=== PATIENT | female | born 1945 | race Caucasian/White ===

== ENCOUNTER → 2016-05-02 | Outpatient (CLI) | payer OTHER, MEDICAID ==
[~2016-05-02] MED LIST: ASA PO; CALCIUM 500500 M1 PO; FENOFIBRATE134 MG PO; FENOFIBRATE145 M1 PO; FISH OIL; GABAPENTIN300 MG PO; GLYXAMBI1 TA1 PO; HUMALOG100 U/ML SC; HUMULIN 70/30 703 M1 SC; HYDROCODONE BIT1 T11 PO; LANTUS SOLOS100 U/M1 SC; LANTUS100 U/ML SC; LOSARTAN POTAS100 M1 PO; MULTIVITAMIN; NORCO 325 MG-51 TAB PO; NOVOLOG 70/30 M10 ML SC; NOVOLOG MI100 UNIT/1 SC; NOVOLOG SC; OMEPRAZOLE; PAROXETINE HCL20 MG PO; PAROXETINE PO; SIMVASTATIN10 MG PO; TRAD5TAB1 PO; VITAMIN D50000 I3 PO; [UNRECOGNIZED DRUG - CODE] PO; [UNRECOGNIZED DRUG - OTHER] PO
[2016-05-02 13:07] LABS: HEMOGLOBIN A1c 9.5 % (4.8-5.6)
[2016-05-02 13:11] LABS: ALBUMIN 3.5 gm/dl (3.1-4.5); BILIRUBIN, TOTAL 0.3 mg/dl (0.2-1.0); POTASSIUM 4.3 mmol/L (3.5-5.1); TOTAL PROTEIN 7.4 gm/dL (6.4-8.2)
== END | disposition home or self-care (01) ==
LOC: LAB 12:07
PROVIDERS: Family Medicine
DX: E11.9 Type 2 diabetes mellitus without complications (principal); I10 Essential (primary) hypertension; E78.00 Pure hypercholesterolemia, unspecified; E55.9 Vitamin D deficiency, unspecified

== ENCOUNTER → 2016-07-23 | Outpatient (CLI) | payer OTHER, MEDICAID | END | disposition home or self-care (01) | LOC: RAD 08:29 | DX: R06.02 Shortness of breath (principal); I10 Essential (primary) hypertension; E11.9 Type 2 diabetes mellitus without complications; R07.89 Other chest pain ==

== ENCOUNTER → 2016-08-01 | Outpatient (CLI) | payer OTHER | END | disposition home or self-care (01) | LOC: CARD 11:04 | DX: R07.9 Chest pain, unspecified (principal) ==

== ENCOUNTER 2016-08-10 11:12 | Inpatient (IN) | payer OTHER, MEDICAID ==
[~2016-08-10] VITALS: Ht 157.5 cm; Wt 84.6 kg
[2016-08-10] VITALS (10 sets, daily range): BP systolic 137–165; BP diastolic 50–78
--- NOTE | ~2016-08-10 | O ---
[place], [place] OPERATIVE NOTE NAME: MARIA ELENA SCHAFER UNIT #: [id number] ROOM: [facility] DOCTOR: SENAIT JUNG,ARABELLA BIRTHDATE: [birth year] DOS: 08/10/2016 ENDOSCOPIC REPORT HISTORY OF PRESENT ILLNESS: The patient has presented with chief complaint of epigastric distress and atypical chest pain and troponin positivity, anemia, drop in H and H to 9 and 28, platelets normal at 360 plus, INR has been 1.0. BUN and creatinine rather has been ____ and 1.6. GFR is greater than 38. Troponin 0.071, lipase 139, normal. Chest x-ray: Interval decrease in lung volume. Troponin again reassessed. PAST MEDICAL HISTORY: Associated diabetes, diverticulosis, hyperglycemia, renal insufficiency. ALLERGIES: No known medication. MEDICATIONS: List has been reviewed. She has been taking aspirin 81 mg daily and about 12 tablets of ibuprofen, nonsteroidal antiinflammatory per day. PROCEDURE: Today's procedure part of investigation is panendoscopy. PREMEDICATION: Versed and Diprivan. SCOPE: Olympus forward-viewing gastroscope Q10 video. REPORT: After putting the patient in the left lateral position and after application of lubricant to the scope, the scope was introduced; thereafter, under direct visualization, advanced through the length of esophagus without difficulty. Esophagus, cervicothoracic was carefully examined. Gastric pouch was entered. Gastritis was seen. Multierosions throughout the antrum was identified. These are all secondary to nonsteroidal anti-inflammatory. Biopsy obtained. Duodenal bulb, second and third parts were free of ulcerations. The patient extubated, tolerated the procedure well. IMPRESSION: Multigastric erosions secondary to nonsteroidal anti-inflammatory gastritis. PLAN AND DISCUSSION: We are going to treat this patient with Protonix 40 mg IV b.i.d., sucralfate 2 grams slurry q.i.d. with every 2 hours before meals and at bedtime soft diet. We are going to obtain platelet function test due to the avid usage of antiplatelets on her including aspirin and nonsteroidal anti-inflammatory and cardiac catheterization is being scheduled by Dr. Stout, workup in progress. [place], [place] OPERATIVE NOTE NAME: MARIA ELENA SCHAFER UNIT #: [id number] ROOM: [facility] DOCTOR: SENAIT JUNG,ARABELLA BIRTHDATE: [birth year] ARABELLA SAPP MD CM:OPRECORD:OPERATIVE NOTE [id number] ARABELLA SAPP MD 08/11/16 0535 interface
--- NOTE | ~2016-08-10 | WRIGHTHP ---
[place], [place] PATIENT HISTORY AND PHYSICAL EXAM NAME: [facility]IA ELENA SCHAFER [id number] UNIT #: [id number] ROOM: [facility] DOCTOR: ARVIND CAT MD BIRTHDATE: [birth year] DOS: 08/10/2016 HISTORY OF PRESENT ILLNESS: The patient is 71 years old. The patient comes in with complaints of chest pain. The patient states that for the last one month she has been having pain across the chest, especially when she does something exertional at home, sometimes it goes between her shoulder blades towards the back. She also has some mild shortness of breath. She went to see her PCP, Dr. Green a few days ago. She was referred to Dr. Stout. Dr. Stout had ordered a stress test when she was waiting for insurance approval for the test, but the patient continued to have chest pain yesterday and so decided to come into the Emergency Room. She was also mildly short of breath. She does not have any palpitations, does not have any fever or chills, does not have any abdominal pain, nausea, any emesis. PAST MEDICAL HISTORY: Significant for, 1. Type 2 diabetes mellitus, insulin dependent. 2. Benign hypertension. 3. Mixed hyperlipidemia. 4. Chronic kidney disease stage 4. 5. Fracture of the right shoulder, status post repair. 6. Chronic back pain as well as shoulder pain from osteoarthritis for which she takes about 12 Motrin daily. MEDICATIONS: Her medications that she currently takes are aspirin 81, again 10-12 Motrin daily for back and other pains, vitamin D 50,000 units weekly, fenofibrate 145 daily, gabapentin 300 b.i.d., losartan 100 daily, Paxil 20 daily, NovoLog 70/30 60 units twice daily, Tresiba 80 units q.h.s., omeprazole 40 daily. SOCIAL HISTORY: Nonsmoker, does not use any alcohol. She lives at home. She had one child who was 34 who at the age of 34. She had 3 brothers who had lung disease. PHYSICAL EXAMINATION: GENERAL: She is awake and alert and oriented with slight respiratory distress at rest. VITAL SIGNS: Pressure is 160/89, pulse of 80, respirations 17, temperature 97.9. LUNGS: Diminished breath sounds. No wheezes heard today. HEART: Regular. ABDOMEN: Obese. EXTREMITIES: Without any edema. No rebound tenderness over the chest wall. LABORATORY DATA: EKG showed sinus, left axis deviation, nonspecific ST-T wave changes, poor R-wave progression with possibility of LVH. The rest of the labs, white cell count was 5.1, hemoglobin 8.9, hematocrit 28.8, platelets 365. Protime is 10.6. Comprehensive glucose 163, BUN 37, creatinine 1.64. Electrolytes were normal. Initial troponin on admission was 0.071. Chest x-ray was unremarkable. [place], [place] PATIENT HISTORY AND PHYSICAL EXAM NAME: MARIA ELENA SCHAFER UNIT #: [id number] ROOM: [facility] DOCTOR: ARVIND CAT MD BIRTHDATE: [birth year] ASSESSMENT AND PLAN: 1. The patient who presents with unstable angina with elevation of troponin, which continues to go up. Since admission it has not stabilized, it continues to show a slight upward take. The patient will need to have a cardiac catheterization so waiting for a stress test on Saturday. Just spoke with Dr. Gupta. The patient to go to [facility] this morning for a cath. 2. Type 2 diabetes mellitus. Blood sugar was on the low side yesterday because she was not eating anything for an endoscopy. Insulin was held and she was given IV fluids with D5 and her blood sugar was 104 this morning. 3. Chronic renal insufficiency, stage 4 from a combination of diabetic nephropathy as well as multiple Motrin that she takes, advised against it. 4. Anemia. Iron, ferritin, B12, folic acid levels are pending. This could be anemia of chronic disease from again chronic renal insufficiency. We are awaiting labs again this morning. The patient was on IV fluids for the last few hours. We will start on supplements again depending on the iron studies. ARVIND CAT MD CM:HISPHYS:PATIENT HISTORY AND PHYSICAL EXAMINATION 1 6 ARVIND CAT MD 08/11/16 0808 interface
[2016-08-10 11:25] LABS: BASO % 0.2 % (0.0-1.0); EOS # 0.1 10*3/uL (0.0-0.4); EOS % 1.8 % (1.0-4.0); HEMATOCRIT 28.8 % (37.0-47.0); HEMOGLOBIN 8.9 g/dl (12.0-16.0); LYMPH # 0.8 10*3/uL (1.3-4.4); LYMPH % 14.7 % (27.0-41.0); MEAN CELL VOLUME 94.4 fl (81.0-99.0); MEAN CORPUSCULAR HGB 29.2 pg (27.0-31.0); MEAN CORPUSCULAR HGB CONC 30.9 g/dl (33.0-37.0); MEAN PLATELET VOLUME 9.2 fl (9.6-12.3); MONO # 0.3 10*3/uL (0.1-1.0); MONO % 5.9 % (3.0-9.0); NEUT # 3.9 10*3/uL (2.3-7.9); NEUT % 76.8 % (47.0-73.0); PLATELET COUNT AUTOMATED 365 10*3/uL (130-400); RED BLOOD COUNT 3.05 10*6/uL (4.10-5.10); RED CELL DISTRI WIDTH 13.4 % (0-14.5); WHITE BLOOD COUNT 5.1 10*3/uL (4.8-10.8)
[2016-08-10 11:35] LABS: PROTHROMBIN TIME 10.6 SECONDS (9.0-12.4)
[2016-08-10 11:41] LABS: ALBUMIN 3.3 gm/dl (3.1-4.5); BILIRUBIN, TOTAL 0.3 mg/dl (0.2-1.0); MAGNESIUM 1.9 mg/dL (1.5-2.1); POTASSIUM 4.4 mmol/L (3.5-5.1); TOTAL PROTEIN 7.7 gm/dL (6.4-8.2)
[2016-08-10 11:45] LABS: TROPONIN I 0.071 ng/ml (<0.045)
[2016-08-10] MEDS ORDERED: ASPIRIN CHEWABL81 MG PO (12:10)
[2016-08-10] MEDS ORDERED: TRESIBA FL100 UNIT/1 SQ (12:12)
[2016-08-10] MEDS ORDERED: VITAMIN D50000 UNIT PO (14:41)
[2016-08-10] MEDS ORDERED: VENTOLIN H0.09 MG/AC INH (14:42)
[2016-08-10 22:57] LABS: COL/ADP 135 SECONDS (63-105); COL/EPI > 300 SECONDS (86-157)
[2016-08-11] VITALS: BP 154/60
[2016-08-11 04:04] VITALS: BP 160/89
[2016-08-11 07:24] LABS: BASO % 0.2 % (0.0-1.0); EOS # 0.1 10*3/uL (0.0-0.4); EOS % 1.3 % (1.0-4.0); HEMOGLOBIN 7.9 g/dl (12.0-16.0); LYMPH # 1.2 10*3/uL (1.3-4.4); LYMPH % 22.8 % (27.0-41.0); MEAN CELL VOLUME 93.9 fl (81.0-99.0); MEAN CORPUSCULAR HGB 28.5 pg (27.0-31.0); MEAN CORPUSCULAR HGB CONC 30.4 g/dl (33.0-37.0); MEAN PLATELET VOLUME 10.5 fl (9.6-12.3); MONO # 0.4 10*3/uL (0.1-1.0); MONO % 7.2 % (3.0-9.0); NEUT # 3.6 10*3/uL (2.3-7.9); NEUT % 68.1 % (47.0-73.0); PLATELET COUNT AUTOMATED 359 10*3/uL (130-400); RED BLOOD COUNT 2.77 10*6/uL (4.10-5.10); RED CELL DISTRI WIDTH 13.5 % (0-14.5); WHITE BLOOD COUNT 5.3 10*3/uL (4.8-10.8)
[2016-08-11 07:34] LABS: POTASSIUM 3.8 mmol/L (3.5-5.1)
[2016-08-11 08:00] VITALS: BP 155/61
[2016-08-11 08:41] LABS: FERRITIN 18.4 ng/mL (10.0-291.0); FOLIC ACID 13.11 ng/mL (>5.38)
== END 2016-08-11 09:37 | disposition short-term general hospital (02) | DRG 377 ==
LOC: ED 11:12 → ICCU 12:44 → EDHOLD 12:44 → ICCU 13:11
PROVIDERS: Hospitalist; Internal Medicine
PROC: 0DB68ZX Excision of Stomach, Via Natural or Artificial Opening Endoscopic, Diagnostic (ICD-10-PCS; principal; 2016-08-10)
DX: K92.2 Gastrointestinal hemorrhage, unspecified (principal); I21.4 Non-ST elevation (NSTEMI) myocardial infarction; N18.4 Chronic kidney disease, stage 4 (severe); E11.22 Type 2 diabetes mellitus with diabetic chronic kidney disease; I20.0 Unstable angina; K25.3 Acute gastric ulcer without hemorrhage or perforation; D64.9 Anemia, unspecified; I12.9 Hypertensive chronic kidney disease with stage 1 through stage 4 chronic kidney disease, or unspecified chronic kidney disease; E78.2 Mixed hyperlipidemia; G89.29 Other chronic pain; M54.9 Dorsalgia, unspecified; K57.90 Diverticulosis of intestine, part unspecified, without perforation or abscess without bleeding; K25.9 Gastric ulcer, unspecified as acute or chronic, without hemorrhage or perforation; T39.395A Adverse effect of other nonsteroidal anti-inflammatory drugs [NSAID], initial encounter; N28.9 Disorder of kidney and ureter, unspecified

== ENCOUNTER → 2017-02-07 | Outpatient (CLI) | payer OTHER, MEDICAID ==
[~2017-02-07] MED LIST changes: +ASPIRIN CHEWABL81 MG PO; +TRESIBA FL100 UNIT/1 SQ; +VENTOLIN H0.09 MG/AC INH; +VITAMIN D50000 UNIT PO
== END | disposition home or self-care (01) ==
LOC: US 12:20
DX: I65.23 Occlusion and stenosis of bilateral carotid arteries (principal); E11.9 Type 2 diabetes mellitus without complications

== ENCOUNTER → 2017-05-29 | Outpatient (CLI) | payer OTHER, MEDICAID ==
[2017-05-29 08:54] LABS: HEMATOCRIT 33.6 % (37.0-47.0); HEMOGLOBIN 10.9 g/dl (12.0-16.0)
[2017-05-29 09:11] LABS: CREATININE 1.18 mg/dL (0.55-1.02); PHOSPHOROUS 3.5 mg/dL (2.5-4.9); POTASSIUM 4.1 mmol/L (3.5-5.1)
[2017-05-29 11:09] LABS: PTH INTACT 31.4 pg/mL (14.0-72.0); VITAMIN D, 25-HYDROXY 16.5 ng/mL (30-100)
== END | disposition home or self-care (01) ==
LOC: LAB 08:13
PROVIDERS: Internal Medicine
DX: N18.3 Chronic kidney disease, stage 3 (moderate) (principal)

== ENCOUNTER → 2017-06-04 | Outpatient (CLI) | payer OTHER, MEDICAID | END | disposition home or self-care (01) | LOC: LAB 08:09 | DX: D50.8 Other iron deficiency anemias (principal) ==

== ENCOUNTER → 2017-08-07 | Outpatient (CLI) | payer OTHER, MEDICAID ==
[2017-08-07 08:38] LABS: BILIRUBIN NEGATIVE (NEGATIVE); BLOOD TRACE-INTACT (NEGATIVE); CLARITY CLEAR (CLEAR); COLOR YELLOW (YELLOW); GLUCOSE NEGATIVE (NEGATIVE); KETONE NEGATIVE (NEGATIVE); LEUKO ESTERASE TRACE (NEGATIVE); NITRITE NEGATIVE (NEGATIVE); UROBILINOGEN 0.2 E.U./dl (0.2-1.0)
[2017-08-07 09:05] LABS: HEMATOCRIT 34.9 % (37.0-47.0); HEMOGLOBIN 11.2 g/dl (12.0-16.0)
[2017-08-07 09:10] LABS: CREATININE 1.37 mg/dL (0.55-1.02); PHOSPHOROUS 3.9 mg/dL (2.5-4.9); POTASSIUM 4.1 mmol/L (3.5-5.1)
[2017-08-07 10:12] LABS: PTH INTACT 19.9 pg/mL (14.0-72.0); VITAMIN D, 25-HYDROXY 33.3 ng/mL (30-100)
[2017-08-07 10:17] LABS: BACTERIA TRACE
[2017-08-08 11:04] LABS: CREATININE,URINE 43.3 mg/dL (Not Estab.); MICRO ALBUMIN/CRE RATIO 149.9 (0.0-30.0)
== END ==
LOC: LAB 08:09
PROVIDERS: Internal Medicine
DX: N18.3 Chronic kidney disease, stage 3 (moderate) (principal)

== ENCOUNTER → 2018-02-26 | Outpatient (CLI) | payer OTHER, MEDICAID ==
[2018-02-26 08:44] LABS: BILIRUBIN NEGATIVE (NEGATIVE); BLOOD TRACE-LYSED (NEGATIVE); CLARITY SL CLOUDY (CLEAR); COLOR YELLOW (YELLOW); GLUCOSE 1+ (NEGATIVE); KETONE NEGATIVE (NEGATIVE); LEUKO ESTERASE 2+ (NEGATIVE); NITRITE NEGATIVE (NEGATIVE); PH 5.5 (5.0-9.0); UROBILINOGEN 0.2 E.U./dl (0.2-1.0)
[2018-02-26 09:01] LABS: EPITHELIAL CELLS 16-20; WBC 51-100 wbc/hpf (0-5)
[2018-02-26 09:02] LABS: BACTERIA 3+
[2018-02-26 09:23] LABS: CREATININE 1.3 mg/dL (0.55-1.02); PHOSPHOROUS 3.3 mg/dL (2.5-4.9); POTASSIUM 4.3 mmol/L (3.5-5.1)
[2018-02-26 11:45] LABS: PTH INTACT 22.6 pg/mL (18.5-88.0); VITAMIN D, 25-HYDROXY 27.2 ng/mL (30-100)
[2018-02-27 09:07] LABS: CREATININE,URINE 47.5 mg/dL (Not Estab.); MICRO ALBUMIN/CRE RATIO 342.9 (0.0-30.0)
== END | disposition home or self-care (01) ==
LOC: LAB 08:20
PROVIDERS: Internal Medicine
DX: N18.3 Chronic kidney disease, stage 3 (moderate) (principal)

== ENCOUNTER → 2018-05-21 | Outpatient (CLI) | payer OTHER, MEDICAID | END | disposition home or self-care (01) | LOC: US 10:00 | DX: I65.23 Occlusion and stenosis of bilateral carotid arteries (principal); R51 Headache; I10 Essential (primary) hypertension; E11.9 Type 2 diabetes mellitus without complications ==

== ENCOUNTER → 2018-06-17 | Outpatient (CLI) | payer OTHER, MEDICAID | END | disposition home or self-care (01) | LOC: US 15:51 | DX: N95.0 Postmenopausal bleeding (principal); N93.9 Abnormal uterine and vaginal bleeding, unspecified ==

== ENCOUNTER → 2018-10-15 | Outpatient (CLI) | payer OTHER, MEDICAID | END | disposition home or self-care (01) | LOC: MAMMO 08:08 | DX: Z12.31 Encounter for screening mammogram for malignant neoplasm of breast (principal) ==

== ENCOUNTER → 2018-11-21 | Outpatient (CLI) | payer OTHER, MEDICAID ==
[2018-11-21 10:23] LABS: ALBUMIN 3.4 gm/dl (3.1-4.5); ALKALINE PHOSPHATASE 207 U/L (45-117); BUN 32 mg/dl (7-24); CHLORIDE 112 mmol/L (98-107); CHOLESTEROL 113 mg/dL (<200); CREATININE 1.04 mg/dL (0.55-1.02); HDL CHOLESTEROL 57 mg/dl (40-60); LDL CHOLESTEROL 33 mg/dL (9-159); POTASSIUM 4.2 mmol/L (3.5-5.1); SGOT/AST 25 IU/L (3-35); SGPT/ALT 51 U/L (12-78); SODIUM 142 mmol/L (136-145); TOTAL PROTEIN 7.6 gm/dL (6.4-8.2); TRIGLYCERIDES 114 mg/dl (<150); VLDL CHOLESTEROL 23 mg/dL (6-40)
[2018-11-22 08:10] LABS: CREATININE,URINE 39.3 mg/dL (Not Estab.); MICRO ALBUMIN/CRE RATIO 153.7 (0.0-30.0)
== END | disposition home or self-care (01) ==
LOC: LAB 09:01
PROVIDERS: Internal Medicine Endocrinology, Diabetes & Metabolism
DX: E11.65 Type 2 diabetes mellitus with hyperglycemia (principal); E55.9 Vitamin D deficiency, unspecified; E53.8 Deficiency of other specified B group vitamins

== ENCOUNTER → 2019-02-12 | Outpatient (CLI) | payer OTHER, MEDICAID | END | disposition home or self-care (01) | LOC: US 09:21 | DX: K80.20 Calculus of gallbladder without cholecystitis without obstruction (principal); K76.0 Fatty (change of) liver, not elsewhere classified; N28.1 Cyst of kidney, acquired; E11.65 Type 2 diabetes mellitus with hyperglycemia; E55.9 Vitamin D deficiency, unspecified; E53.8 Deficiency of other specified B group vitamins ==

== ENCOUNTER → 2019-02-17 | Outpatient (CLI) | payer OTHER, MEDICAID ==
[2019-02-17 09:21] LABS: ALBUMIN 3.4 gm/dl (3.1-4.5); POTASSIUM 4.1 mmol/L (3.5-5.1)
[2019-02-17 09:24] LABS: CREATININE 1.1 mg/dL (0.55-1.02); TOTAL PROTEIN 7.4 gm/dL (6.4-8.2)
[2019-02-17 09:26] LABS: VITAMIN D, 25-HYDROXY 35.4 ng/mL (30-100)
[2019-02-18 11:07] LABS: CREATININE,URINE 56.2 mg/dL (Not Estab.); MICRO ALBUMIN/CRE RATIO 78.8 (0.0-30.0)
== END | disposition home or self-care (01) ==
LOC: LAB 08:12
PROVIDERS: Internal Medicine Endocrinology, Diabetes & Metabolism
DX: E11.65 Type 2 diabetes mellitus with hyperglycemia (principal); E55.9 Vitamin D deficiency, unspecified; E53.8 Deficiency of other specified B group vitamins

== ENCOUNTER → 2019-05-19 | Outpatient (CLI) | payer OTHER, MEDICAID ==
[2019-05-19 09:54] LABS: ALBUMIN 3.9 gm/dl (3.1-4.5)
[2019-05-19 09:58] LABS: BILIRUBIN, DIRECT 0.2 mg/dL (0.0-0.2)
== END | disposition home or self-care (01) ==
LOC: LAB 07:50
PROVIDERS: Internal Medicine Gastroenterology
DX: K80.20 Calculus of gallbladder without cholecystitis without obstruction (principal); D64.9 Anemia, unspecified

== ENCOUNTER → 2019-06-09 | Outpatient (CLI) | payer OTHER, MEDICAID ==
[2019-06-09 09:54] LABS: POTASSIUM 4.4 mmol/L (3.5-5.1)
[2019-06-09 10:07] LABS: ALBUMIN 3.8 gm/dl (3.1-4.5); CREATININE 1.21 mg/dL (0.55-1.02); FREE T4 0.99 ng/dl (0.76-1.46); THYROID STIM HORMONE (HS) 1.23 uIU/ml (0.358-4.75); TOTAL PROTEIN 7.9 gm/dL (6.4-8.2)
[2019-06-09 10:18] LABS: VITAMIN D, 25-HYDROXY 51.6 ng/mL (30-100)
[2019-06-10 11:10] LABS: CREATININE,URINE 93.3 mg/dL (Not Estab.)
== END | disposition home or self-care (01) ==
LOC: LAB 08:07
PROVIDERS: Internal Medicine Endocrinology, Diabetes & Metabolism
DX: E11.65 Type 2 diabetes mellitus with hyperglycemia (principal); E55.9 Vitamin D deficiency, unspecified; E53.8 Deficiency of other specified B group vitamins; R63.4 Abnormal weight loss

== ENCOUNTER → 2019-10-15 | Outpatient (CLI) | payer OTHER, MEDICAID | LOC: RAD 13:29 | DX: Z13.820 Encounter for screening for osteoporosis (principal); Z78.0 Asymptomatic menopausal state ==

== ENCOUNTER 2020-01-21 17:18 | Emergency (ER) | payer OTHER, MEDICAID ==
[~2020-01-21] VITALS: Wt 59.0 kg
[2020-01-21 18:56] LABS: CREATININE 1.44 mg/dL (0.55-1.02); POTASSIUM 4.7 mmol/L (3.5-5.1)
== END 2020-01-21 19:07 | disposition home or self-care (01) ==
LOC: ED 17:18
PROVIDERS: Emergency Medicine
DX: E87.5 Hyperkalemia (principal); E11.9 Type 2 diabetes mellitus without complications; I10 Essential (primary) hypertension; K21.9 Gastro-esophageal reflux disease without esophagitis; F41.9 Anxiety disorder, unspecified; Z79.899 Other long term (current) drug therapy

== ENCOUNTER → 2020-11-15 | Outpatient (CLI) | payer OTHER, MEDICAID ==
[2020-11-15 09:48] LABS: POTASSIUM 4.6 mmol/L (3.5-5.1)
[2020-11-15 10:05] LABS: ALBUMIN 3.8 gm/dl (3.1-4.5); CREATININE 1.23 mg/dL (0.55-1.02); FREE T4 1.05 ng/dl (0.76-1.46); THYROID STIM HORMONE (HS) 1.55 uIU/ml (0.358-4.75); TOTAL PROTEIN 7.8 gm/dL (6.4-8.2)
[2020-11-15 10:31] LABS: VITAMIN D, 25-HYDROXY 52.8 ng/mL (30-100)
[2020-11-15 10:32] LABS: PTH INTACT 36.5 pg/mL (18.5-88.0)
[2020-11-16 11:07] LABS: CREATININE,URINE 41.2 mg/dL (Not Estab.)
== END | disposition home or self-care (01) ==
LOC: LAB 08:32
PROVIDERS: ATTEND Internal Medicine Endocrinology, Diabetes & Metabolism
DX: E11.65 Type 2 diabetes mellitus with hyperglycemia (principal); E55.9 Vitamin D deficiency, unspecified; E53.8 Deficiency of other specified B group vitamins; E34.8 Other specified endocrine disorders; M81.0 Age-related osteoporosis without current pathological fracture; E34.9 Endocrine disorder, unspecified; R63.4 Abnormal weight loss

== ENCOUNTER → 2021-04-18 | Outpatient (CLI) | payer OTHER, MEDICAID ==
[2021-04-18 14:38] LABS: BASO % 0.3 % (0.0-1.0); EOS # 0.1 10*3/uL (0.0-0.4); EOS % 1.9 % (1.0-4.0); HEMATOCRIT 35.2 % (37.0-47.0); LYMPH # 1.4 10*3/uL (1.3-4.4); LYMPH % 20.9 % (27.0-41.0); MEAN CELL VOLUME 100.3 fl (81.0-99.0); MEAN CORPUSCULAR HGB 32.8 pg (27.0-31.0); MEAN CORPUSCULAR HGB CONC 32.7 g/dl (33.0-37.0); MEAN PLATELET VOLUME 9.5 fl (9.6-12.3); MONO # 0.5 10*3/uL (0.1-1.0); MONO % 6.8 % (3.0-9.0); NEUT # 4.8 10*3/uL (2.3-7.9); NEUT % 69.8 % (47.0-73.0); PLATELET COUNT AUTOMATED 255 10*3/uL (130-400); RED BLOOD COUNT 3.51 10*6/uL (4.10-5.10); RED CELL DISTRI WIDTH 12.4 % (0-14.5); WHITE BLOOD COUNT 6.9 10*3/uL (4.8-10.8)
[2021-04-18 14:39] LABS: BILIRUBIN Negative (Negative); BLOOD Trace-Lysed (Negative); CLARITY Clear (Clear); COLOR Yellow (Yellow); GLUCOSE Negative (Negative); KETONE Negative (Negative); LEUKO ESTERASE Negative (Negative); NITRITE Negative (Negative); PH 5.5 (4.5-8.0); UROBILINOGEN 0.2 E.U./dl (0.0-1.0)
[2021-04-18 14:50] LABS: BACTERIA 1+; EPITHELIAL CELLS 0-2; HYALINE CAST 0-2; RBC 0-2 rbc/hpf (0-2); WBC 0-2 wbc/hpf (0-5)
[2021-04-18 14:52] LABS: ALBUMIN 3.5 gm/dl (3.1-4.5); CREATININE 1.33 mg/dL (0.55-1.02); POTASSIUM 3.8 mmol/L (3.5-5.1)
[2021-04-18 15:03] LABS: URINE CREATININE RANDOM 30.3 mg/dL
[2021-04-18 15:24] LABS: FERRITIN 152.5 ng/mL (10.0-291.0); PTH INTACT 9.9 pg/mL (18.5-88.0)
== END | disposition home or self-care (01) ==
LOC: CARD 04-17 08:30 → LAB 13:30 → CARD 14:00
PROVIDERS: ATTEND Internal Medicine Nephrology
DX: N18.31 Chronic kidney disease, stage 3a (principal); D63.1 Anemia in chronic kidney disease; N25.81 Secondary hyperparathyroidism of renal origin; I35.8 Other nonrheumatic aortic valve disorders

== ENCOUNTER 2021-08-22 13:50 | Emergency (ER) | payer OTHER, MEDICAID ==
[~2021-08-22] VITALS: Ht 157.4 cm; Wt 63.5 kg
[2021-08-22] MEDS ORDERED: OZEMPIC0.25 MG/01 SQ (14:04)
[2021-08-22] MEDS ORDERED: TRESIBA FL100 UNIT/1 SQ (14:08)
[2021-08-22] MEDS ORDERED: HUMALOG100 UNIT/1 SQ (14:09)
[2021-08-22] MEDS ORDERED: ATORVASTATIN CA40 M1 PO (14:10)
[2021-08-22] MEDS ORDERED: FISH OIL 1,0001 EAC4 PO (14:11)
[2021-08-22] MEDS ORDERED: FOSAMAX70 M1 PO (14:16)
== END 2021-08-22 16:46 | disposition home or self-care (01) ==
LOC: ED 13:50
DX: S46.912A Strain of unspecified muscle, fascia and tendon at shoulder and upper arm level, left arm, initial encounter (principal); Z79.899 Other long term (current) drug therapy; Z79.82 Long term (current) use of aspirin; Z90.89 Acquired absence of other organs; V43.52XA Car driver injured in collision with other type car in traffic accident, initial encounter; Y93.89 Activity, other specified; Y92.89 Other specified places as the place of occurrence of the external cause; Y99.8 Other external cause status

== ENCOUNTER → 2021-10-09 | Outpatient (CLI) | payer OTHER, MEDICAID ==
[~2021-10-09] MED LIST changes: +ATORVASTATIN CA40 M1 PO; +FISH OIL 1,0001 EAC4 PO; +FOSAMAX70 M1 PO; +HUMALOG100 UNIT/1 SQ; +OZEMPIC0.25 MG/01 SQ
[2021-10-09 09:39] LABS: BASO % 0.4 % (0.0-1.0); EOS # 0.1 10*3/uL (0.0-0.4); EOS % 1.3 % (1.0-4.0); HEMATOCRIT 34.4 % (37.0-47.0); LYMPH # 1.2 10*3/uL (1.3-4.4); LYMPH % 22.6 % (27.0-41.0); MEAN CELL VOLUME 101.2 fl (81.0-99.0); MEAN CORPUSCULAR HGB 33.2 pg (27.0-31.0); MEAN CORPUSCULAR HGB CONC 32.8 g/dl (33.0-37.0); MEAN PLATELET VOLUME 9.5 fl (9.6-12.3); MONO # 0.4 10*3/uL (0.1-1.0); MONO % 7.2 % (3.0-9.0); NEUT # 3.7 10*3/uL (2.3-7.9); NEUT % 68.1 % (47.0-73.0); PLATELET COUNT AUTOMATED 221 10*3/uL (130-400); RED CELL DISTRI WIDTH 12.5 % (0-14.5); WHITE BLOOD COUNT 5.5 10*3/uL (4.8-10.8)
[2021-10-09 09:42] LABS: BILIRUBIN Negative (Negative); BLOOD Negative (Negative); CLARITY Clear (Clear); COLOR Yellow (Yellow); GLUCOSE Negative (Negative); KETONE Negative (Negative); LEUKO ESTERASE Trace (Negative); NITRITE Negative (Negative); UROBILINOGEN 0.2 E.U./dl (0.0-1.0)
[2021-10-09 09:56] LABS: CREATININE 1.35 mg/dL (0.55-1.02); POTASSIUM 4.6 mmol/L (3.5-5.1)
[2021-10-09 09:58] LABS: URINE CREATININE RANDOM 59.4 mg/dL
[2021-10-09 10:45] LABS: FERRITIN 148.2 ng/mL (10.0-291.0); VITAMIN D, 25-HYDROXY 46.5 ng/mL (30-100)
[2021-10-09 11:10] LABS: BACTERIA 1+
== END | disposition home or self-care (01) ==
LOC: LAB 09:01
PROVIDERS: ATTEND Internal Medicine Nephrology
DX: N18.31 Chronic kidney disease, stage 3a (principal); N25.81 Secondary hyperparathyroidism of renal origin; D63.1 Anemia in chronic kidney disease; Z79.899 Other long term (current) drug therapy

== ENCOUNTER → 2022-07-09 | Outpatient (CLI) | payer OTHER, MEDICAID | END | disposition home or self-care (01) | LOC: ORTHO 01:50 | PROVIDERS: ATTEND Orthopaedic Surgery | DX: S42.301A Unspecified fracture of shaft of humerus, right arm, initial encounter for closed fracture (principal); M19.011 Primary osteoarthritis, right shoulder; X58.XXXA Exposure to other specified factors, initial encounter; Y93.89 Activity, other specified; Y92.89 Other specified places as the place of occurrence of the external cause; Y99.8 Other external cause status ==

== ENCOUNTER → 2022-09-28 | Outpatient (CLI) | payer OTHER, MEDICAID | END | disposition home or self-care (01) | LOC: RAD 09:00 | PROVIDERS: ATTEND Physician Assistant | DX: M81.0 Age-related osteoporosis without current pathological fracture (principal) ==

== ENCOUNTER → 2023-09-03 | Outpatient (CLI) | payer MEDICARE ==
[2023-09-03 10:31] LABS: BASO % 0.5 % (0.0-1.0); EOS # 0.2 10*3/uL (0.0-0.4); EOS % 3.2 % (1.0-4.0); HEMATOCRIT 38.1 % (37.0-47.0); LYMPH # 1.4 10*3/uL (1.3-4.4); LYMPH % 22.7 % (27.0-41.0); MEAN CELL VOLUME 97.9 fl (81.0-99.0); MEAN CORPUSCULAR HGB 31.9 pg (27.0-31.0); MEAN CORPUSCULAR HGB CONC 32.5 g/dl (33.0-37.0); MEAN PLATELET VOLUME 10.4 fl (9.6-12.3); MONO # 0.5 10*3/uL (0.1-1.0); MONO % 8.4 % (3.0-9.0); NEUT # 3.9 10*3/uL (2.3-7.9); PLATELET COUNT AUTOMATED 232 10*3/uL (130-400); RED BLOOD COUNT 3.89 10*6/uL (4.10-5.10); RED CELL DISTRI WIDTH 13.3 % (0-14.5)
[2023-09-03 10:41] LABS: BILIRUBIN Negative (Negative); BLOOD Negative (Negative); CLARITY Clear (Clear); COLOR Yellow (Yellow); GLUCOSE 3+ (Negative); KETONE Negative (Negative); LEUKO ESTERASE Negative (Negative); NITRITE Negative (Negative); PH 5.5 (4.5-8.0); SPECIFIC GRAVITY 1.015 (1.001-1.030); UROBILINOGEN 0.2 E.U./dl (0.0-1.0)
[2023-09-03 10:49] LABS: URINE CREATININE RANDOM 41.02 mg/dL
[2023-09-03 10:59] LABS: POTASSIUM 3.9 mmol/L (3.4-5.1)
[2023-09-03 11:00] LABS: VITAMIN D, 25-HYDROXY 53.4 ng/mL (30-100)
[2023-09-03 11:17] LABS: EPITHELIAL CELLS 0-2; WBC 0-2 wbc/hpf (0-5)
== END | disposition home or self-care (01) ==
LOC: LAB 09:53
PROVIDERS: ATTEND Internal Medicine Nephrology
DX: N25.81 Secondary hyperparathyroidism of renal origin (principal); N18.30 Chronic kidney disease, stage 3 unspecified

== ENCOUNTER → 2023-12-17 | Outpatient (CLI) | payer MEDICARE ==
[2023-12-17 15:59] LABS: BILIRUBIN Negative (Negative); BLOOD Negative (Negative); CLARITY Clear (Clear); COLOR Yellow (Yellow); GLUCOSE 3+ (Negative); KETONE Negative (Negative); LEUKO ESTERASE Negative (Negative); NITRITE Negative (Negative); PH 5.5 (4.5-8.0); UROBILINOGEN 0.2 E.U./dl (0.0-1.0)
[2023-12-17 16:00] LABS: BASO % 0.5 % (0.0-1.0); EOS # 0.2 10*3/uL (0.0-0.4); EOS % 3.5 % (1.0-4.0); LYMPH # 1.6 10*3/uL (1.3-4.4); LYMPH % 26.5 % (27.0-41.0); MEAN CELL VOLUME 96.6 fl (81.0-99.0); MEAN CORPUSCULAR HGB 31.6 pg (27.0-31.0); MEAN CORPUSCULAR HGB CONC 32.8 g/dl (33.0-37.0); MEAN PLATELET VOLUME 10.4 fl (9.6-12.3); MONO # 0.4 10*3/uL (0.1-1.0); MONO % 6.3 % (3.0-9.0); NEUT # 3.8 10*3/uL (2.3-7.9); NEUT % 62.9 % (47.0-73.0); PLATELET COUNT AUTOMATED 214 10*3/uL (130-400); RED BLOOD COUNT 4.14 10*6/uL (4.10-5.10); RED CELL DISTRI WIDTH 13.4 % (0-14.5); RETICULOCYTE % 1.91 % (0.50-2.50)
[2023-12-17 16:10] LABS: BACTERIA TRACE; EPITHELIAL CELLS 0-2
[2023-12-17 16:33] LABS: POTASSIUM 4.2 mmol/L (3.4-5.1); TOTAL PROTEIN 7.6 gm/dL (6.0-8.0)
[2023-12-17 16:34] LABS: VITAMIN D, 25-HYDROXY 54.5 ng/mL (30-100)
== END | disposition home or self-care (01) ==
LOC: LAB 15:21
PROVIDERS: ATTEND Family Medicine
DX: R53.83 Other fatigue (principal); R79.89 Other specified abnormal findings of blood chemistry; E78.5 Hyperlipidemia, unspecified; E55.9 Vitamin D deficiency, unspecified

== ENCOUNTER → 2024-07-15 | Outpatient (CLI) | payer MEDICARE ==
[2024-07-15 14:53] LABS: BASO % 0.5 % (0.0-1.0); EOS # 0.2 10*3/uL (0.0-0.4); EOS % 2.7 % (1.0-4.0); HEMATOCRIT 39.6 % (37.0-47.0); MEAN CELL VOLUME 95.9 fl (81.0-99.0); MEAN CORPUSCULAR HGB 31.5 pg (27.0-31.0); MEAN CORPUSCULAR HGB CONC 32.8 g/dl (33.0-37.0); MEAN PLATELET VOLUME 10.4 fl (9.6-12.3); MONO # 0.5 10*3/uL (0.1-1.0); MONO % 7.3 % (3.0-9.0); NEUT # 4.3 10*3/uL (2.3-7.9); NEUT % 68.4 % (47.0-73.0); PLATELET COUNT AUTOMATED 210 10*3/uL (130-400); RED BLOOD COUNT 4.13 10*6/uL (4.10-5.10); RED CELL DISTRI WIDTH 13.4 % (0-14.5); RETICULOCYTE % 1.76 % (0.50-2.50); WHITE BLOOD COUNT 6.3 10*3/uL (4.8-10.8)
[2024-07-15 15:18] LABS: POTASSIUM 4.2 mmol/L (3.4-5.1); T3 UPTAKE 27.5 % (22.4-36.7); THYROXINE (T4) TOTAL 7.9 ug/dl (4.5-10.9); TOTAL PROTEIN 7.5 gm/dL (6.0-8.0)
[2024-07-15 15:49] LABS: BILIRUBIN Negative (Negative); BLOOD Negative (Negative); CLARITY Clear (Clear); COLOR Yellow (Yellow); GLUCOSE 3+ (Negative); KETONE Negative (Negative); LEUKO ESTERASE 2+ (Negative); NITRITE Negative (Negative); PH 5.5 (4.5-8.0); UROBILINOGEN 0.2 E.U./dl (0.0-1.0)
[2024-07-15 15:52] LABS: VITAMIN D, 25-HYDROXY 48.9 ng/mL (30-100)
[2024-07-15 16:03] LABS: RBC 0-2 rbc/hpf (0-2); WBC 21-30 wbc/hpf (0-5)
[2024-07-15 16:04] LABS: BACTERIA 1+
== END | disposition home or self-care (01) ==
LOC: LAB 14:36
PROVIDERS: ATTEND Family Medicine
DX: R79.89 Other specified abnormal findings of blood chemistry (principal); R53.83 Other fatigue; E78.5 Hyperlipidemia, unspecified; E55.9 Vitamin D deficiency, unspecified

== ENCOUNTER → 2024-10-13 | Outpatient (CLI) | payer MEDICARE ==
[2024-10-13 14:02] LABS: BASO # 0.0 10*3/uL (0.0-0.1); BASO % 0.7 % (0.0-1.0); EOS # 0.2 10*3/uL (0.0-0.4); EOS % 4.1 % (1.0-4.0); MEAN CELL VOLUME 96.9 fl (81.0-99.0); MEAN CORPUSCULAR HGB 32.0 pg (27.0-31.0); MEAN PLATELET VOLUME 10.5 fl (9.6-12.3); MONO # 0.5 10*3/uL (0.1-1.0); MONO % 7.7 % (3.0-9.0); NEUT # 3.8 10*3/uL (2.3-7.9); NEUT % 64.2 % (47.0-73.0); NUCLEATED RED BLOOD CELL 0.0 % (0.0-0.0); NUCLEATED RED BLOOD CELL 0.0 10*3/uL (0.0-0.0); PLATELET COUNT AUTOMATED 198 10*3/uL (130-400); RED CELL DISTRI WIDTH 13.2 % (0-14.5)
[2024-10-13 14:04] LABS: BILIRUBIN Negative (Negative); BLOOD Negative (Negative); CLARITY Clear (Clear); COLOR Yellow (Yellow); KETONE Negative (Negative); LEUKO ESTERASE Negative (Negative); NITRITE Negative (Negative); PH 5.5 (4.5-8.0); SPECIFIC GRAVITY 1.015 (1.001-1.030); UROBILINOGEN 0.2 E.U./dl (0.0-1.0)
[2024-10-13 14:17] LABS: MUCOUS TRACE; WBC 0-2 wbc/hpf (0-5)
[2024-10-13 14:29] LABS: BUN 45.0 mg/dl (9-23)
[2024-10-13 14:32] LABS: VITAMIN D, 25-HYDROXY 49.5 ng/mL (30-100)
== END | disposition home or self-care (01) ==
LOC: LAB 13:20
PROVIDERS: ATTEND Internal Medicine Nephrology
DX: N18.30 Chronic kidney disease, stage 3 unspecified (principal); N25.81 Secondary hyperparathyroidism of renal origin; D63.1 Anemia in chronic kidney disease